=== PATIENT | male | born 1960 | race Caucasian/White ===

== ENCOUNTER 2021-03-28 13:44 | Emergency (ER) | payer OTHER ==
[~2021-03-28] VITALS: Ht 182.9 cm; Wt 81.6 kg
== END 2021-03-28 14:48 | disposition home or self-care (01) ==
LOC: ER 13:44
DX: S60.512A Abrasion of left hand, initial encounter (principal); W55.01XA Bitten by cat, initial encounter; Y93.89 Activity, other specified; Y92.89 Other specified places as the place of occurrence of the external cause; Y99.8 Other external cause status